=== PATIENT | male | born 1940 | race Caucasian/White ===

== ENCOUNTER 2019-12-29 08:41 | Emergency (ER) | payer OTHER ==
[~2019-12-29] VITALS: Ht 180.3 cm; Wt 69.0 kg
[2019-12-29] MEDS ORDERED: NORVASC5 MG PO (09:00)
== END 2019-12-29 09:39 | disposition home or self-care (01) ==
LOC: ER 08:41
DX: S61.412A Laceration without foreign body of left hand, initial encounter (principal); Z88.8 Allergy status to other drugs, medicaments and biological substances; Z79.899 Other long term (current) drug therapy; W25.XXXA Contact with sharp glass, initial encounter; Y93.G1 Activity, food preparation and clean up
CPT/HCPCS: 12001; 99282-25

== ENCOUNTER 2022-09-20 08:01 | Observation (INO) | payer OTHER ==
[~2022-09-20] VITALS: Ht 172.7 cm; Wt 74.8 kg
[~2022-09-20 08:01] MED LIST: NORVASC5 MG PO
[2022-09-20 08:38] LABS: BASOPHILS ABSOLUTE AUTO 0.01 K/mm3 (0.00-0.23); BASOPHILS PERCENT AUTO 0 % (0-2); EOSINOPHILS ABSOLUTE AUTO 0.01 K/mm3 (0.00-0.68); EOSINOPHILS PERCENT AUTO 0 % (0-6); Hematocrit 31.8 % (37.0-53.0); Hemoglobin 10.7 g/dL (13.5-17.5); IMMATURE GRAN ABSOLUTE AUTO 0.06 K/mm3 (0.00-0.10); IMMATURE GRAN PERCENT AUTO 1 % (0-1); LYMPHOCYTES ABSOLUTE AUTO 0.78 K/mm3 (0.84-5.20); LYMPHOCYTES PERCENT AUTO 16 % (21-46); MONOCYTES ABSOLUTE AUTO 1.07 K/mm3 (0.16-1.47); MONOCYTES PERCENT AUTO 22 % (4-13); Mean Corpuscular HGB 32.5 pg (26.0-34.0); Mean Corpuscular HGB Conc 33.6 g/dL (31.5-36.5); Mean Corpuscular Volume 97 fL (80-100); Mean Platelet Volume 10.1 fL (9.1-12.4); NEUTROPHILS ABSOLUTE AUTO 2.88 K/mm3 (1.96-9.15); NEUTROPHILS PERCENT AUTO 60 % (41-73); Platelet Count 170 K/mm3 (150-400); RDW Coefficient Variation 13.9 % (11.7-14.2); Red Blood Cell Count 3.29 M/mm3 (4.30-5.90); White Blood Cell Count 4.81 K/mm3 (4.00-11.30)
[2022-09-20 08:58] LABS: Albumin, Blood 3.6 g/dL (3.4-5.0); Albumin/Globulin Ratio 1.2 (0.8-1.8); Bilirubin, Total 0.4 mg/dL (0.1-1.0); Bun/Creatinine Ratio 26.2 (12.0-20.0); Calcium, Blood 8.9 mg/dL (8.5-10.1); Creatinine, Blood 1.03 mg/dL (0.60-1.20); Potassium, Blood 3.4 mmol/L (3.5-5.5); Total Protein, Blood 6.6 g/dL (6.4-8.2)
[2022-09-20 11:14] VITALS: BP 139/80
[2022-09-20 16:24] VITALS: BP 136/70
--- NOTE | 2022-09-20 17:41 | NUR ---
SHIFT NOTE PT RESTING QUIETLY. FIRST PART OF THE STRESS DONE. PT TOLERATED WELL. ECHO DONE. PT NOTED TO HAVE A SIGNIFICANT LEFT MID AXILLARY MURMUR. THE THRILL CAN BE FELT ON HIS CHEST WALL. VSS. HE HAS DENIED CHEST PRESSURE OR CHEST PAIN SINCE ARRIVAL TO HIS ROOM. UP AD CHERRY IN ROOM. FIRE NOTE. PT ASSESSED FOR IGNITION RISK. PT EDUCATED ABOUT INGNITION RISK WHILE IN THE HOSPITAL. PT EXPRESSED UNDERSTANDING. CONTINUE POC.
[2022-09-20 20:37] VITALS: BP 124/60
[2022-09-21 03:10] VITALS: BP 114/65
[2022-09-21 06:02] LABS: CHOL/HDL RATIO 3.2; Cholesterol 170 mg/dL (50-200); HDL Cholesterol 53 mg/dL (>39); Low Density Lipoprotein Chol 103 mg/dL (0-110); Triglycerides 68 mg/dL (30-160); Very Low Density Lipoprot Chol 13 mg/dL (6-32)
[2022-09-21 08:49] VITALS: BP 115/73
--- NOTE | 2022-09-21 10:17 | NUR ---
[facility] CALLED [facility] TO SEE ABOUT PET SCAN AND FOLLOW UP WITH DR JAMES. PT SAY DR JAMES IN [place] WITH NO NEED FOR ADDITIONAL F/U. 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 CONTINUE POC.
[2022-09-21] MEDS ORDERED: Aspir 8181 MG PO (16:36)
--- NOTE | 2022-09-21 16:57 | NUR ---
DISCHARGE PT TALKED WITH DR LIZARRAGA. DISCHARGE HOME WITH FAMILY. IV REMOVED WITH CANNULA INTACT. PRESSURE DRESSING APPLIED. CONTINUE POC.
== END 2022-09-21 17:05 | disposition home or self-care (01) ==
LOC: ER 08:01 → MEDS 08:02
PROVIDERS: Emergency Medicine; ADMIT Internal Medicine
DX: R07.89 Other chest pain (principal); E87.6 Hypokalemia; I34.0 Nonrheumatic mitral (valve) insufficiency; I25.10 Atherosclerotic heart disease of native coronary artery without angina pectoris; I10 Essential (primary) hypertension; Z95.1 Presence of aortocoronary bypass graft; Z87.891 Personal history of nicotine dependence; Z88.8 Allergy status to other drugs, medicaments and biological substances; Z79.899 Other long term (current) drug therapy
CPT/HCPCS: 36415; 71045; 76775; 78452; 80053; 80061; 84484; 85025; 93005; 93010; 93017; 93306; 96372; 99285-25; A9500; G0378; J0706; J1644; J2785

== ENCOUNTER 2022-10-16 08:32 | Emergency (ER) | payer OTHER ==
[~2022-10-16] VITALS: Ht 180.3 cm; Wt 59.0 kg
[~2022-10-16 08:32] MED LIST changes: +Aspir 8181 MG PO
[2022-10-16 09:16] LABS: Hematocrit 23.6 % (37.0-53.0); Hemoglobin 7.5 g/dL (13.5-17.5); Mean Corpuscular HGB 31.5 pg (26.0-34.0); Mean Corpuscular HGB Conc 31.8 g/dL (31.5-36.5); Mean Corpuscular Volume 99 fL (80-100); Mean Platelet Volume 10.6 fL (9.1-12.4); NRBC ABSOLUTE 0.03 K/mm3 (0.00-0.02); NRBC Auto 0.4 /100 WBC (0.0-0.2); Platelet Count 131 K/mm3 (150-400); RDW Coefficient Variation 16.5 % (11.7-14.2); RDW Standard Deviation 56.9 fL (35.1-46.3); Red Blood Cell Count 2.38 M/mm3 (4.30-5.90); White Blood Cell Count 7.14 K/mm3 (4.00-11.30)
[2022-10-16 09:37] LABS: BAND PERCENT MAN 2 % (0-8); BASOPHILS PERCENT MAN 0 % (0-2); EOSINOPHILS PERCENT MAN 0 % (0-6); LYMPHOCYTES % ATYPICAL MANUAL 1 % (0-0); LYMPHOCYTES ABSOLUTE MAN 0.57 K/mm3 (0.84-5.20); LYMPHOCYTES PERCENT MAN 7 % (21-46); MONOCYTES ABSOLUTE MAN 0.71 K/mm3 (0.16-1.47); MONOCYTES PERCENT MAN 10 % (4-13); MYELOCYTE ABSOLUTE MAN 0.21 K/mm3 (0.00-0.00); MYELOCYTE PERCENT MAN 3 % (0-0); NEUTROPHILS ABSOLUTE MAN 5.64 K/mm3 (1.96-9.15); SEG NEUTROPHILS PERCENT MAN 77 % (41-73); TOTAL CELLS COUNTED 100
[2022-10-16 09:51] LABS: Albumin, Blood 3.1 g/dL (3.4-5.0); Albumin/Globulin Ratio 1.2 (0.8-1.8); Bilirubin, Total 0.3 mg/dL (0.1-1.0); Bun/Creatinine Ratio 56.9 (12.0-20.0); Calcium, Blood 8.4 mg/dL (8.5-10.1); Creatinine, Blood 0.88 mg/dL (0.60-1.20); Globulin, Blood 2.6 g/dL (2.2-4.0); Potassium, Blood 4.4 mmol/L (3.5-5.5); Total Protein, Blood 5.7 g/dL (6.4-8.2)
[2022-10-16 13:00] VITALS: BP 132/69
[2022-10-16 13:51] LABS: Influenza A, PCR NEGATIVE (NEGATIVE); Influenza B, PCR NEGATIVE (NEGATIVE); Resp Syncytial Virus, PCR NEGATIVE (NEGATIVE); SARS-Cov-2 (COVID-19) PCR, MMC NEGATIVE (NEGATIVE)
== END 2022-10-16 13:05 | disposition short-term general hospital (02) ==
LOC: ER 08:32
PROVIDERS: Emergency Medicine
DX: D62 Acute posthemorrhagic anemia (principal); D69.6 Thrombocytopenia, unspecified; I10 Essential (primary) hypertension; I25.10 Atherosclerotic heart disease of native coronary artery without angina pectoris; Z79.82 Long term (current) use of aspirin; Z88.8 Allergy status to other drugs, medicaments and biological substances; Z79.899 Other long term (current) drug therapy
CPT/HCPCS: 0241U; 80053; 84484; 85025; 86850; 86900; 86901; 86923; 93005; 93010; C9113; J7030; P9016